=== PATIENT | male | born 1950 | race Two or more races ===

== ENCOUNTER 2022-06-22 16:38 | Inpatient (IN) | payer OTHER, MEDICAID ==
[~2022-06-22] VITALS: Ht 170.2 cm; Wt 80.5 kg
[2022-06-22] MEDS ORDERED: TAMS0.4C36 PO (21:11)
[2022-06-22] MEDS ORDERED: CARV6.2551 PO (21:11)
[2022-06-22] MEDS ORDERED: FURO1TAB31 PO (21:11)
[2022-06-22] MEDS ORDERED: POTA10TA51 PO (21:11)
[2022-06-22] MEDS ORDERED: LISI-716 PO (21:11)
[2022-06-22] MEDS ORDERED: APIX5TAB PO (21:11)
[2022-06-22] MEDS ORDERED: ATOR40TA52 PO (21:12)
[2022-06-22] MEDS ORDERED: CHOL20007 PO (21:13)
[2022-06-22] MEDS ORDERED: DOCUSATE SOD 100 MG CAP PO PRN (21:15)
[2022-06-22] MEDS ORDERED: NITROGLYCERIN 0.4 MG SL TAB SL PRN (21:15)
[2022-06-22] MEDS ORDERED: MORPHINE SULFATE INJ 2 MG/ml SYRG IV PRN ×2 (21:15)
[2022-06-22] MEDS ORDERED: ACETAMINOPHEN 325 MG TAB PO PRN (21:15)
[2022-06-22] MEDS ORDERED: HYDROcodone-ACET 5/325MG TAB PO PRN (21:15)
[2022-06-22 21:21] VITALS: BP 152/82
[2022-06-22 22:00] VITALS: BP 132/77
[2022-06-22] MEDS ORDERED: DOXYCYCLINE 100 MG TAB/CAP PO SCH (22:00)
[2022-06-22] MEDS: ATORVASTATIN 20 MG TAB PO SCH (23:30)
[2022-06-22] MEDS: CARVEDILOL 3.125 MG TAB PO SCH (23:30)
[2022-06-22 23:48] VITALS: BP 152/82
[2022-06-23] MEDS: IPRATROPIUM BROM 0.5 MG/2.5ML INH SOL NEB SCH ×4 (00:30→18:10)
[2022-06-23] MEDS: ALBUTEROL SULF 2.5 MG/0.5ML(0.5%) NEB SOLN NEB SCH ×4 (00:30→18:10)
[2022-06-23 05:00] VITALS: BP 101/68
[2022-06-23 05:59] LABS: Basophils # (auto) 0 10 ^3/uL (0-0.2); Basophils % (auto) 0.1 % (0.0-2.0); Eosinophils # (auto) 0 10 ^3/uL (0-0.8); Hematocrit 39.5 % (41.0-53.0); Hemoglobin 13.4 g/dL (13.5-17.5); Lymphocytes # (auto) 1.1 10 ^3/uL (0.4-5.4); Mean Corpuscular Hemoglobin 29.7 pg (28.0-32.0); Mean Corpuscular Volume 87.5 fL (80.0-100.0); Monocytes # (auto) 0.3 10 ^3/uL (0-1.3); Monocytes % (auto) 3.8 % (0.0-12.0); Neutrophils # (auto) 7.2 10 ^3/uL (1.6-8.6); Neutrophils % (auto) 83.1 % (37.0-80.0); Nucleated Red Blood Cells % 0.1 %; Red Blood Cells 4.52 10^6/uL (4.5-5.90); Red Cell Distribution Width 13.3 % (11.8-14.3); White Blood Cell 8.7 10^3/uL (4.4-10.8)
[2022-06-23] MEDS: FUROSEMIDE 40 MG/4 ML VIAL IV SCH ×2 (06:00→18:33)
[2022-06-23 06:04] LABS: BUN/Creatinine Ratio 20.7 (10.0-20.0); Calcium 8.4 mg/dL (8.5-10.1); Potassium 3.9 mmol/L (3.5-5.1)
[2022-06-23 09:00] VITALS: BP 123/80
[2022-06-23] MEDS: cefTRIAXone 1GM/50ML D5W 50 ML IV SCH (09:17)
[2022-06-23] MEDS: ASPirin-EC 81 mg tab PO SCH (09:18)
[2022-06-23] MEDS: POTASSIUM CHL 20 Meq TABLET PO SCH (09:18)
[2022-06-23] MEDS: CARVEDILOL 3.125 MG TAB PO SCH ×2 (09:18→23:11)
[2022-06-23] MEDS: ENOXAPARIN SOD 40 MG/0.4 ML SYRINGE SC SCH (09:23)
[2022-06-23] MEDS: AZITHROMYCIN 500MG/ 250ML 250 ML IV SCH (10:24)
[2022-06-23 13:00] VITALS: BP 137/81
[2022-06-23 17:00] VITALS: BP 110/50
[2022-06-23] MEDS: TAMSULOSIN HYDROCHLORIDE 0.4 MG CAP PO SCH (18:32)
[2022-06-23 20:00] VITALS: BP 137/81
[2022-06-23 22:00] VITALS: BP 137/81
[2022-06-23] MEDS: ATORVASTATIN 20 MG TAB PO SCH (23:10)
[2022-06-24 05:00] VITALS: BP 128/73
[2022-06-24 06:02] LABS: Basophils # (auto) 0 10 ^3/uL (0-0.2); Basophils % (auto) 0.5 % (0.0-2.0); Eosinophils # (auto) 0.1 10 ^3/uL (0-0.8); Eosinophils % (auto) 1.3 % (0.0-7.0); Hematocrit 40.3 % (41.0-53.0); Hemoglobin 13.5 g/dL (13.5-17.5); Lymphocytes # (auto) 2.6 10 ^3/uL (0.4-5.4); Lymphocytes % (auto) 28.4 % (10.0-50.0); Mean Corpuscular Hemoglobin 29.6 pg (28.0-32.0); Mean Corpuscular Hgb Conc. 33.5 g/dL (32.0-36.0); Mean Corpuscular Volume 88.4 fL (80.0-100.0); Monocytes # (auto) 0.8 10 ^3/uL (0-1.3); Monocytes % (auto) 8.8 % (0.0-12.0); Neutrophils # (auto) 5.6 10 ^3/uL (1.6-8.6); Red Blood Cells 4.55 10^6/uL (4.5-5.90); Red Cell Distribution Width 13.4 % (11.8-14.3); White Blood Cell 9.1 10^3/uL (4.4-10.8)
[2022-06-24 06:15] LABS: BUN/Creatinine Ratio 28.9 (10.0-20.0); Calcium 7.8 mg/dL (8.5-10.1); Potassium 3.8 mmol/L (3.5-5.1)
[2022-06-24] MEDS: ALBUTEROL SULF 2.5 MG/0.5ML(0.5%) NEB SOLN NEB SCH ×4 (06:47→18:41)
[2022-06-24] MEDS: IPRATROPIUM BROM 0.5 MG/2.5ML INH SOL NEB SCH ×4 (06:47→18:42)
[2022-06-24] MEDS: FUROSEMIDE 40 MG/4 ML VIAL IV SCH ×2 (06:53→18:43)
[2022-06-24 09:00] VITALS: BP 126/80
[2022-06-24] MEDS: ASPirin-EC 81 mg tab PO SCH (09:02)
[2022-06-24] MEDS: cefTRIAXone 1GM/50ML D5W 50 ML IV SCH (09:02)
[2022-06-24] MEDS: ENOXAPARIN SOD 40 MG/0.4 ML SYRINGE SC SCH (09:03)
[2022-06-24] MEDS: POTASSIUM CHL 20 Meq TABLET PO SCH (09:04)
[2022-06-24] MEDS: CARVEDILOL 3.125 MG TAB PO SCH (09:06)
[2022-06-24] MEDS: AZITHROMYCIN 500MG/ 250ML 250 ML IV SCH (09:08)
[2022-06-24 13:06] VITALS: BP 107/65
[2022-06-24 17:00] VITALS: BP 115/78
[2022-06-24] MEDS ORDERED: AMOXICILLIN/CLAVULAN 500 MG TAB PO ONE (18:15)
[2022-06-24] MEDS: TAMSULOSIN HYDROCHLORIDE 0.4 MG CAP PO SCH (18:43)
== END 2022-06-24 20:00 | disposition home or self-care (01) | DRG 291 ==
LOC: TELE-WESTW 19:34 → INTOOBSV 19:34 → UNDOADMOB 19:34 → TELE-WESTW 21:26 → OBSVTOIN 06-24 14:19
PROVIDERS: ADMIT Internal Medicine; ATTEND Internal Medicine
DX: I11.0 Hypertensive heart disease with heart failure (principal); I50.23 Acute on chronic systolic (congestive) heart failure; J18.9 Pneumonia, unspecified organism; I42.9 Cardiomyopathy, unspecified; Z79.01 Long term (current) use of anticoagulants; Z80.7 Family history of other malignant neoplasms of lymphoid, hematopoietic and related tissues; Z86.73 Personal history of transient ischemic attack (TIA), and cerebral infarction without residual deficits; J44.9 Chronic obstructive pulmonary disease, unspecified
CPT/HCPCS: 36415; 71046; 80048; 84484; 85025; 93306; 94640; G0378; J0696

== ENCOUNTER 2022-09-25 14:30 | Inpatient (IN) | payer OTHER, MEDICAID ==
[2022-09-25] VITALS (7 sets, daily range): BP systolic 134; BP diastolic 85; PULSE 47–67; RESP 13–24; TEMP 98.1; O2SAT 96–100
[~2022-09-25] VITALS: Ht 170.2 cm; Wt 76.9 kg
[~2022-09-25 14:30] MED LIST: APIX5TAB PO; ATOR40TA52 PO; CARV6.2551 PO; CHOL20007 PO; FURO1TAB31 PO; LISI10TA34 PO; POTA10TA51 PO; TAMS0.4C36 PO
[2022-09-25 15:05] LABS: Basophils # (auto) 0.1 10 ^3/uL (0-0.2); Basophils % (auto) 1.3 % (0.0-2.0); Eosinophils # (auto) 0.3 10 ^3/uL (0-0.8); Eosinophils % (auto) 5.4 % (0.0-7.0); Hematocrit 40.1 % (41.0-53.0); Hemoglobin 13.7 g/dL (13.5-17.5); Lymphocytes % (auto) 39.6 % (10.0-50.0); Mean Corpuscular Hemoglobin 30.2 pg (28.0-32.0); Mean Corpuscular Hgb Conc. 34.1 g/dL (32.0-36.0); Mean Corpuscular Volume 88.5 fL (80.0-100.0); Monocytes # (auto) 0.6 10 ^3/uL (0-1.3); Neutrophils # (auto) 2.2 10 ^3/uL (1.6-8.6); Neutrophils % (auto) 41.7 % (37.0-80.0); Nucleated Red Blood Cells % 0.1 %; Red Blood Cells 4.53 10^6/uL (4.5-5.90); Red Cell Distribution Width 12.7 % (11.8-14.3); White Blood Cell 5.2 10^3/uL (4.4-10.8)
[2022-09-25 15:19] LABS: INR 1.28 (0.9-1.15); Partial Thromboplastin Time 29.6 SEC (24.5-34.5); Prothrombin Time 13.2 sec (9.3-11.8)
[2022-09-25 15:42] LABS: Albumin 3.1 g/dL (3.4-5.0); BUN/Creatinine Ratio 17.8 (10.0-20.0); Calcium 8.1 mg/dL (8.5-10.1); Potassium 3.7 mmol/L (3.5-5.1)
[2022-09-25 15:44] LABS: Bilirubin, Total 0.6 mg/dL (0.2-1.0)
[2022-09-25] MEDS ORDERED: ENOXAPARIN SOD 80 MG/0.8ML SYRINGE SC ONE ×2 (16:30)
[2022-09-25] MEDS ORDERED: FUROSEMIDE 40 MG/4 ML VIAL IV ONE (16:30)
[2022-09-25] MEDS ORDERED: ACETAMINOPHEN 325 MG TAB PO PRN (16:45)
[2022-09-25] MEDS ORDERED: ONDANSETRON HCL 4 MG/2 ML VIAL IV PRN (16:45)
[2022-09-25] MEDS ORDERED: HYDROcodone-ACET 5/325MG TAB PO PRN (16:45)
[2022-09-25] MEDS ORDERED: MORPHINE SULFATE INJ 2 MG/ml SYRG IV PRN ×2 (16:45)
[2022-09-25] MEDS ORDERED: NITROGLYCERIN 0.4 MG SL TAB SL PRN (16:45)
[2022-09-25] MEDS ORDERED: TAMSULOSIN HYDROCHLORIDE 0.4 MG CAP PO SCH (18:00)
[2022-09-25] MEDS: IPRATROPIUM BROM 0.5 MG/2.5ML INH SOL NEB SCH ×2 (18:34→22:01)
[2022-09-25] MEDS: ALBUTEROL SULF 2.5 MG/0.5ML(0.5%) NEB SOLN NEB SCH ×2 (18:34→22:01)
[2022-09-25] MEDS: CARVEDILOL 3.125 MG TAB PO SCH (21:59)
[2022-09-26] VITALS (9 sets, daily range): BP systolic 134–136; BP diastolic 81; PULSE 47–87; RESP 12–20; TEMP 97.9–98.1; O2SAT 95–100
[2022-09-26] MEDS: ALBUTEROL SULF 2.5 MG/0.5ML(0.5%) NEB SOLN NEB SCH ×3 (02:03→10:49)
[2022-09-26 05:56] LABS: Basophils # (auto) 0 10 ^3/uL (0-0.2); Eosinophils # (auto) 0.2 10 ^3/uL (0-0.8); Eosinophils % (auto) 5.3 % (0.0-7.0); Hematocrit 39.4 % (41.0-53.0); Hemoglobin 13.2 g/dL (13.5-17.5); Lymphocytes # (auto) 2.1 10 ^3/uL (0.4-5.4); Mean Corpuscular Hemoglobin 30.3 pg (28.0-32.0); Mean Corpuscular Hgb Conc. 33.5 g/dL (32.0-36.0); Mean Corpuscular Volume 90.5 fL (80.0-100.0); Monocytes # (auto) 0.6 10 ^3/uL (0-1.3); Monocytes % (auto) 11.9 % (0.0-12.0); Neutrophils # (auto) 1.8 10 ^3/uL (1.6-8.6); Neutrophils % (auto) 37.8 % (37.0-80.0); Nucleated Red Blood Cells % 0.1 %; Red Blood Cells 4.35 10^6/uL (4.5-5.90); Red Cell Distribution Width 12.9 % (11.8-14.3); White Blood Cell 4.7 10^3/uL (4.4-10.8)
[2022-09-26 06:25] LABS: Potassium 3.6 mmol/L (3.5-5.1)
[2022-09-26] MEDS: ENOXAPARIN SOD 80 MG/0.8ML SYRINGE SC SCH ×2 (06:37→11:48)
[2022-09-26 06:39] LABS: BUN/Creatinine Ratio 16.7 (10.0-20.0); Bilirubin, Total 0.8 mg/dL (0.2-1.0); Calcium 7.9 mg/dL (8.5-10.1); Total Protein 6.9 g/dL (6.4-8.2)
[2022-09-26] MEDS: IPRATROPIUM BROM 0.5 MG/2.5ML INH SOL NEB SCH ×2 (08:30→10:49)
[2022-09-26] MEDS ORDERED: LISINOPRIL 10 MG TAB PO SCH (10:00)
[2022-09-26] MEDS: CARVEDILOL 3.125 MG TAB PO SCH (10:00)
[2022-09-26] MEDS ORDERED: ATORVASTATIN 20 MG TAB PO SCH (10:00)
[2022-09-26] MEDS ORDERED: CHOLECALCIFEROL (VITD3) 2,000 UNIT CAP/TAB PO SCH (10:00)
== END 2022-09-26 15:05 | disposition home or self-care (01) | DRG 280 ==
LOC: ER 14:30 → TELE 16:49 → TELE-CENTR 09-26 10:54
PROVIDERS: ADMIT Internal Medicine; ATTEND Internal Medicine
DX: I21.4 Non-ST elevation (NSTEMI) myocardial infarction (principal); I50.43 Acute on chronic combined systolic (congestive) and diastolic (congestive) heart failure; J44.9 Chronic obstructive pulmonary disease, unspecified; E78.5 Hyperlipidemia, unspecified; N40.0 Benign prostatic hyperplasia without lower urinary tract symptoms; I48.0 Paroxysmal atrial fibrillation; I11.0 Hypertensive heart disease with heart failure; R73.03 Prediabetes; E66.9 Obesity, unspecified; Z87.891 Personal history of nicotine dependence; Z80.7 Family history of other malignant neoplasms of lymphoid, hematopoietic and related tissues; Z91.199 Patient's noncompliance with other medical treatment and regimen due to unspecified reason; Z79.01 Long term (current) use of anticoagulants; Z68.26 Body mass index [BMI] 26.0-26.9, adult
CPT/HCPCS: 36415; 71045; 80053; 83880; 84484; 85025; 85379; 85610; 85730; 93005; 93306; 94640; 96372; 96374; 97163; 99291; G0378

== ENCOUNTER 2023-12-18 18:26 | Emergency (ER) | payer OTHER, MEDICAID ==
[~2023-12-18] VITALS: Ht 170.2 cm; Wt 68.0 kg
[~2023-12-18 18:26] MED LIST changes: +POTA-36 PO; -POTA10TA51 PO; -TAMS0.4C36 PO; +TAMS0.4C39 PO
--- NOTE | 2023-12-18 18:58 | ED.PDOC ---
General HPI Comments 73-year-old male presents with a chief complaint of foreskin pain x 9 days. Patient mentions that his foreskin is red and swollen around his penis and is barely able to pull his foreskin back without pain. Patient is still able to urinate and denies any urinary symptoms at this time. Patient denies any sexual activity recently or masturbation. No other symptoms or modifying factors present at this time. Chief Complaint: Penile Problem Time Seen by MD: 18:46 Reviewed notes: Medications, Allergies Allergies: Coded Allergies: NO KNOWN ALLERGIES (Unverified , 06/22/22) Home Meds Reported Medications Cholecalciferol (VITAMIN D3) 2,000 Unit Tab, 1 TAB PO DAILY, #90 TAB 3 Refills 06/22/22 Atorvastatin Calcium (ATORVASTATIN CALCIUM) 40 Mg Tab, 40 MG PO DAILY, TAB 06/22/22 Tamsulosin Hcl (Tamsulosin Hcl) 0.4 Mg Cap, 0.4 MG PO QPM for 30 Days, MG 06/22/22 Furosemide (Lasix) 40 Mg Tab, 40 MG PO, TAB 06/22/22 Potassium Chloride (POTASSIUM CHLORIDE CR) 10 Meq Tb, 20 MEQ PO, TAB 06/22/22 Carvedilol (Carvedilol) 6.25 Mg Tab, 6.25 MG PO BID for 30 Days, MG 06/22/22 Lisinopril (Lisinopril) 10 Mg Tab, 10 MG PO DAILY for 30 Days, MG 06/22/22 Apixaban Base (ELIQUIS) 5 Mg Tab, 5 MG PO BID, TAB 06/22/22 Information Source: Patient Mode of Arrival: Ambulatory Severity: Moderate Inability to void: None Timing: Days Duration: Since onset Has not urinated for: Minutes Prehospital treatment: None Onset: Spontaneous Symptoms: Other (FORESKIN PAIN) History of: None Location: None Penile discharge: None Modifying factors: None associated signs and symptoms: None Past Medical History PAST MEDICAL HISTORY: COPD Surgical History: Unknown Family History Family History: Unknown Social History Smoker: Non-Smoker Alcohol: Denies ETOH Use Drugs: Denies Drug Use Lives In: Home Constitutional: denies: chills, diaphoresis, fatigue, fever, malaise, sweats, weakness, others EENTM: denies: blurred vision, double vision, ear bleeding, ear discharge, ear drainage, ear pain, ear ringing, eye pain, eye redness, hearing loss, mouth pain, mouth swelling, nasal discharge, nose bleeding, nose congestion, nose pain, photophobia, tearing, throat pain, throat swelling, voice changes, others Respiratory: denies: cough, hemoptysis, orthopnea, SOB at rest, shortness of breath, SOB with excertion, stridor, wheezing, others Cardiovascular: denies: chest pain, dizzy spells, diaphoresis, Dyspnea on exertion, edema, irregular heart beat, left arm pain, lightheadedness, palpitations, PND, syncope, others Gastrointestinal: denies: abdomen distended, abdominal pain, blood streaked bowels, constipated, diarrhea, dysphagia, difficulty swallowing, hematemesis, melena, nausea, poor appetite, poor fluid intake, rectal bleeding, rectal pain, vomiting, others Genitourinary: reports: pain (PENILE/FORESKIN); denies: burning, dysuria, flank pain, frequency, hematuria, incontinence, penile discharge, penile sore, testicle pain, testicle swelling, urgency, others Neurological: denies: dizziness, fainting, headache, left sided numbness, left sided weakness, numbness, paresthesia, pre-existing deficit, right sided numbnes s, right sided weakness, seizure, speech problems, tingling, tremors, weakness, others Musculoskeletal: denies: back pain, gout, joint pain, joint swelling, muscle pain, muscle stiffness, neck pain, others Integumetry: denies: bruises, change in color, change in hair/nails, dryness, laceration, lesions, lumps, rash, wounds, others Allergic/Immunocompromised: denies: Difficulty Healing, Frequent Infections, Hives, Itching, others Hematologic/Lymphatic: denies: anemia, blood clots, easy bleeding, easy bruising, swollen glands, others Endocrine: denies: excessive hunger, excessive sweating, excessive thirst, excessive urination, flushing, intolerance to cold, intolerance to heat, unexplained weight gain, unexplained weight loss, others Psychiatric: denies: anxiety, bipolar disorder, depression, hopeless, panic disorder, schizophrenia, sleepless, suicidal, others All Other Systems: Reviewed and Negative Physical Exam General Appearance: No Apparent Distress, Normal HEENT: Normal ENT Inspection, Pharynx Normal, TMs Normal Neck: Full Range of Motion, Non-Tender, Normal, Normal Inspection Respiratory: Chest Non-Tender, Lungs Clear, No Accessory Muscle Use, No Respiratory Distress, Normal Breath Sounds Cardiovascular: No Edema, No JVD, No Murmur, No Gallop, Normal Peripheral Pulses, Regular Rate/Rhythm Breast Exam: Deferred Gastrointestinal: No Organomegaly, Non Tender, No Pulsatile Mass, Normal Bowel Sounds, Soft Genitalia: Foreskin (Uncircumcised, swelling noted to the foreskin, mild erythemic,), Deferred Pelvic: Deferred Rectal: Deferred Extremities: No calf tenderness, Normal capillary refill, Normal inspection, Normal range of motion, Non-tender, No pedal edema Musculoskeletal : Apperance: Normal Neurologic: Alert, composition professor II-XII nml as Tested, No Motor Deficits, Normal Affect, Normal Mood, No Sensory Deficits Cerebellar Function: Normal Reflexes: Normal Skin: Dry, Normal Color, Warm Lymphatic: No Adenopathy Was a procedure done? Was a procedure done?: No Differential Diagnosis Kidney stone (Female): N/A Kidney stone (Male): N/A Urinary Problem (Male): Other (Phimosis) X-Ray, Labs, Meds, VS Vital Signs Date Time Temp Pulse Resp B/P (MAP) Pulse Ox O2 Delivery O2 Flow Rate FiO2 12/18/23 18:49 98.9 65 16 117/71 (86) 96 X-Ray, Labs, Meds, VS Comment Imaging: X-rays and CT scans were reviewed and interpreted by this provider, imaging shows no fractures and no pathological disease. Pending radiology review. Laboratory: Labs reviewed and interpreted by this provider. No significant abnormalities noted. Patient has prior medical visits reviewed. Med reconciliation performed Vital signs reviewed Time of 1ST Reevaluation: 19:16 Reevaluation 1ST: Unchanged Patient Education/Counseling: Diagnosis, Treatment, Prognosis, Need For Follow Up (Patient advised to follow-up in the emergency room in the next 24 to 48 hours if symptoms do not improve. Advised follow-up with PCP in the next 3 to 5 days. Patient verbalized understanding. ) Family Education/Counseling: No Family Present Departure 1 Departure Time of Disposition: 19:11 Impression: Primary Impression: Phimosis Disposition: 01 HOME / SELF CARE / HOMELESS Condition: Fair e-Prescriptions Betamethasone Dipropionate (Diprosone) 1 Applic Ap 1 APPLIC TOP BID, #15 GRAMS 3 Refills Prov: LINDA BELTRAN 12/18/23 Cephalexin Monohydrate (Cephalexin) 500 Mg Cap 1 CAP PO TID for 10 Days, #30 CAP Prov: LINDA BELTRAN 12/18/23 Mupirocin Calcium (Topical) (MUPIROCIN) 2 % Cre 2 % EX BID, #30 CRE Prov: LINDA BELTRAN 12/18/23 Discharged With: Self Critical Care Note Critical Care Time?: No Stability Stability form required: No Heart Score Heart Score: Heart Score Response (Comments) Value History N/A 0 EKG N/A 0 Age N/A 0 Risk Factors N/A 0 Troponin N/A 0 Total 0 I personally scribed for LINDA BELTRAN ([email or web address]) on 12/18/23 at 18:58. Electronically submitted by Tyree Hall ([email or web address]). LINDA BELTRAN Dec 18, 2023 18:58
[2023-12-18] MEDS ORDERED: MUPI2CRE17 EX (19:13)
[2023-12-18] MEDS ORDERED: CEPH500C PO (19:13)
[2023-12-18] MEDS ORDERED: DIP005TP TOP (19:15)
[2023-12-18 20:00] VITALS: BP 120/69; PULSE 60; RESP 16; TEMP 98.2; O2SAT 96
== END 2023-12-18 20:05 | disposition home or self-care (01) ==
LOC: ER 18:30
DX: N47.1 Phimosis (principal); J44.9 Chronic obstructive pulmonary disease, unspecified; Z79.899 Other long term (current) drug therapy